=== PATIENT | female | born 1990 | race Caucasian/White ===

== ENCOUNTER → 2019-10-19 09:00 | Outpatient (CLI) | payer OTHER, SELFPAY ==
[2019-10-19 08:22] VITALS: BMI 23.9
[2019-10-23 20:36] LABS: HPV APTIMA, High Risk Negative (Negative)
== END ==
PROVIDERS: Referring Provider Obstetrics & Gynecology; Visit Provider Obstetrics & Gynecology
DX: Z12.4 Encounter for screening for malignant neoplasm of cervix (principal)
CPT/HCPCS: 87624; 88175; G0145